=== PATIENT | female | born 1975 | race Caucasian/White ===

== ENCOUNTER 2021-05-06 23:02 | Emergency (ER) | payer SELFPAY ==
--- NOTE | 2021-05-06 23:30 | EDM.PDOCBH ---
ED HPI GENERAL MEDICAL PROBLEM - General Chief Complaint: Drug or Alcohol Abuse Stated Complaint: MEDICAL CLEARANCE Time Seen by Provider: 05/06/21 23:15 Source of Information: Reports: Patient, Police History Limitations: Reports: Intoxication - History of Present Illness INITIAL COMMENTS - FREE TEXT/NARRATIVE: brought in by law enforcement for clearance for longterm has been intoxicated no trauma no bleeding , alert and oriented to self and time denies any complaints Onset: Today Onset Date: 05/06/21 Duration: Constant Location: Reports: Generalized Improves with: Reports: None Worsens with: Reports: None Associated Symptoms: Denies: Confusion, Diaphoresis, Fever/Chills, Headaches, Malaise, Shortness of Breath, Syncope, Weakness ED ROS GENERAL - Review of Systems Review Of Systems: Comprehensive ROS is negative, except as noted in HPI. Respiratory: Denies: Shortness of Breath, Cough Cardiovascular: Denies: Chest Pain Endocrine: Denies: Fatigue GI/Abdominal: Denies: Abdominal Pain Musculoskeletal: Reports: No Symptoms Skin: Reports: No Symptoms Neurological: Denies: Confusion, Seizure, Syncope, Tremors Psychiatric: Denies: Anxiety, Confusion, Hallucinations, Mood Lability, Suicidal Ideation Hematologic/Lymphatic: Reports: No Symptoms Immunologic: Reports: No Symptoms ED EXAM, BEHAVIORAL HEALTH - Physical Exam Exam: See Below Exam Limited By: Intoxication General Appearance: Alert, WD/WN, No Apparent Distress. No: Anxious Eye Exam: Bilateral Eye: EOMI Nose: Normal Inspection Throat/Mouth: Normal Inspection, Normal Oropharynx Head: Atraumatic, Normocephalic Neck: Supple, Non-Tender Respiratory/Chest: No Respiratory Distress, Lungs Clear Cardiovascular: Regular Rate, Rhythm GI/Abdominal: Soft, Non-Tender Back Exam: Normal Inspection, Full Range of Motion Extremities: Normal Inspection, Normal Range of Motion Neurological: Alert, Normal Mood/Affect, CN II-XII Intact, Oriented x 3 COURSE, BEHAVIORAL HEALTH COMP - Course Medical Clearance: 05/06/21 23:29 pt is medically cleared to go to longterm Departure - Departure Time of Disposition: 23:30 Disposition: DC/Tfer to Court of Law En 21 Condition: Fair Clinical Impression: Acute alcohol intoxication - Discharge Information *PRESCRIPTION DRUG MONITORING PROGRAM REVIEWED*: Not Applicable *COPY OF PRESCRIPTION DRUG MONITORING REPORT IN PATIENT GEORGIAN: Not Applicable Instructions: Alcohol Intoxication Forms: ED Department Discharge
== END 2021-05-06 23:40 ==
LOC: FB.ED 23:02
DX: F10.129 Alcohol abuse with intoxication, unspecified (principal)
CPT/HCPCS: 99283